=== PATIENT | female | born 1980 | race American Indian/Alaskan Native ===

== ENCOUNTER 2019-11-24 23:21 | Emergency (ER) | payer MEDICAID ==
[2019-11-24] MEDS ORDERED: KETOROLAC 30 MG/1 ML INJ IM ONE (23:49)
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
[2019-11-25 00:25] LABS: Hematocrit 34.8 % (30.3-42.9); Hemoglobin 11.2 gm/dl (10.1-14.3); Mean Corpuscular HGB Conc 32 % (30-34); Mean Corpuscular Volume 83 fl (79-97); Platelet Count 228 K/mm3 (140-440); Red Blood Count 4.18 M/mm3 (3.65-5.03); Red Cell Distribution Width 15.5 % (13.2-15.2)
[2019-11-25 00:42] LABS: Alanine Aminotransferase 19 units/L (7-56); Albumin 3.7 g/dL (3.9-5); BUN/Creatinine Ratio 33; Blood Urea Nitrogen 13 mg/dL (7-17); Calcium 9.3 mg/dL (8.4-10.2); Hemolysis Index 6
[2019-11-25] MEDS ORDERED: MAGNESIUM OXIDE 400 MG TAB PO ONE (00:53)
[2019-11-25 01:30] VITALS: BP 111/67
== END 2019-11-25 03:05 ==
LOC: ED 23:21
DX: N93.9 Abnormal uterine and vaginal bleeding, unspecified (principal); Z00.00 Encounter for general adult medical examination without abnormal findings; F31.9 Bipolar disorder, unspecified; M19.90 Unspecified osteoarthritis, unspecified site; E05.00 Thyrotoxicosis with diffuse goiter without thyrotoxic crisis or storm; Z98.890 Other specified postprocedural states
CPT/HCPCS: 36415; 80053; 82550; 83690; 83735; 84702; 85027; 86689; 86850; 86900; 86901; 87806; 96372; 99284; J1885